=== PATIENT | female | born 1980 | race African-American/Black ===

== ENCOUNTER 2017-05-25 17:51 | Emergency (ER) | payer SELFPAY ==
--- NOTE | 2017-05-25 18:12 | PDOC ---
Rapid Medical Evaluation Chief Complaint: Pain, Acute Time Seen by Provider: 05/25/17 18:08 Medical Evaluation: Allergies Allergy/AdvReac Type Severity Reaction Status Date / Time No Known Allergies Allergy Verified 12/18/15 09:48 05/25/17 18:09 The patient presents with a chief complaint of: [Right sided facial pain and pressure, nasal congestion. High blood pressure not taking meds. No chest pain or sob. ] I have performed a brief in-person evaluation of this patient. Pertinent physical exam findings: BP elevated, no sinus pressure or pain. No headache. I have ordered the following: [None] The patient will proceed to the ED for further evaluation. Discharge Disposition - Diagnosis Facial pain - Referrals - Patient Instructions - Post Discharge Activity
[2017-05-25 18:23] VITALS: BP 187/104; PULSE 72; TEMP 98.1; BMI 33.3
--- NOTE | 2017-05-25 18:39 | PDOC ---
History of Present Illness - General Chief Complaint: Pain, Acute Stated Complaint: PAIN Time Seen by Provider: 05/25/17 18:08 History Source: Patient Exam Limitations: No Limitations - History of Present Illness Initial Comments: 05/25/17 18:47 36 yr female with history of HTN not on meds presents with c/o right facial pressure and nasal congestion. no headache no dizzyness, no vomiting or chest pain no changes in vision. Past History - Past Medical History Allergies/Adverse Reactions: Allergies Allergy/AdvReac Type Severity Reaction Status Date / Time No Known Allergies Allergy Verified 05/25/17 18:09 Home Medications: Ambulatory Orders Amlodipine Besylate [Norvasc -] 5 mg PO DAILY #30 tablet 05/25/17 Fluticasone Prop 0.05% Nasal [Flonase -] 1 - 2 spray NS DAILY #1 spray.pump 09/06 COPD: No DVT: No Dementia: No HTN: Yes - Immunization History Immunization Up to Date: Yes - Suicide/Smoking/Psychosocial Hx Smoking History: Never smoked Have you smoked in the past 12 months: No Information on smoking cessation initiated: No Hx Alcohol Use: No Drug/Substance Use Hx: No Substance Use Type: None Review of Systems - Review of Systems Able to Perform ROS?: Yes Is the patient limited Icelandic proficient: No Constitutional: No: Symptoms Reported HEENTM: Yes: Symptoms Reported Respiratory: No: Symptoms reported Cardiac (ROS): No: Symptoms Reported, Chest Tightness *Physical Exam - Vital Signs Last Vital Signs Temp Pulse Resp BP Pulse Ox 98.1 F 72 17 187/104 98 05/25/17 18:09 05/25/17 18:09 05/25/17 18:09 05/25/17 18:09 05/25/17 18:09 - Physical Exam General Appearance: Yes: Nourished, Appropriately Dressed HEENT: positive: EOMI, OSIRIS, Normal ENT Inspection, TMs Normal, Pharynx Normal, Sinus Tenderness (right maxilary ), Other (nasal swelling bilateraly, right greater than left, mucous membranes moist ) Neck: positive: Supple. negative: Tender Respiratory/Chest: positive: Lungs Clear, Normal Breath Sounds. negative: Chest Tender, Rhonchi, Wheezing Cardiovascular: positive: Regular Rhythm, Regular Rate. negative: Murmur Musculoskeletal: positive: Normal Inspection Extremity: positive: Normal Capillary Refill, Normal Inspection, Normal Range of Motion Integumentary: positive: Normal Color, Dry, Warm Neurologic: positive: Fully Oriented, Alert, Normal Mood/Affect, Normal Response , Motor Strength 07/24 Medical Decision Making - Medical Decision Making 05/25/17 18:57 cc: nasal congestion, right sided facial pain no headache no dizzyness no chest pain no vision changes I discussed the case with in the ER and will place on Norvasc on 5mg daily and have pt follow up in 1-2 weeks with PMD I have given referrals for Primary care as well as ENTfor follow up *DC/Admit/Observation/Transfer Diagnosis at time of Disposition: Facial pain Hypertension Qualifiers: Hypertension type: essential hypertension Qualified Code(s): I10 - Essential ( primary) hypertension - Discharge Dispostion Disposition: HOME Condition at time of disposition: Good - Prescriptions Prescriptions: Amlodipine Besylate [Norvasc -] 5 mg PO DAILY #30 tablet Fluticasone Prop 0.05% Nasal [Flonase -] 1 - 2 spray NS DAILY #1 spray.pump - Referrals Referrals: [facility] [place] [facility] [place] [Provider Group] [facility] [Provider Group] [facility] [Provider Group] José Miguel Soares MD [Staff Physician] - - Patient Instructions Additional Instructions: use the nasal spray as directed take Norvasc 5mg daily at the same time for your blood pressure follow with one of the Internal Medicine Doctors below for follow up and primary care call tomorrow to check your insurance with them and make an appointment for within the next 2 weeks you can also follow with the ENT if any worsening symptoms of nasal congestion or sinus pain - Post Discharge Activity
[2017-05-25] MEDS ORDERED: amLODIPine BESYLATE 5 MG TABLET (FP) PO STA (18:45)
[2017-05-25] MEDS ORDERED: amLODIPine BESYLATE 5 MG TABLET (FP) ONE (18:52)
== END 2017-05-25 19:11 | disposition home or self-care (01) ==
LOC: JERFT 17:51
DX: G50.1 Atypical facial pain (principal); I10 Essential (primary) hypertension
CPT/HCPCS: 99281-25

== ENCOUNTER 2018-02-09 16:40 | Emergency (ER) | payer SELFPAY ==
--- NOTE | 2018-02-09 16:51 | PDOC ---
Rapid Medical Evaluation Time Seen by Provider: 02/09/18 16:46 Medical Evaluation: Allergies Allergy/AdvReac Type Severity Reaction Status Date / Time No Known Allergies Allergy Verified 05/25/17 18:09 02/09/18 16:46 I have performed a brief in-person evaluation of this patient. The patient presents with a chief complaint of: left foot pain x "a while" Pertinent physical exam findings: firm mass to medial aspect of distal 3rd phalanx of left foot. BP- 218/119- asymptomatic I have ordered the following: urine The patient will proceed to the ED for further evaluation. Discharge Disposition - Diagnosis Foot pain, left - Referrals - Patient Instructions - Post Discharge Activity
[2018-02-09 16:53] VITALS: TEMP 98.7; BMI 33.3
[2018-02-09 17:27] LABS: HCG,QUALITATIVE URINE Negative
[2018-02-09 17:28] LABS: URINE APPEARANCE CLEAR; URINE BILIRUBIN NEGATIVE (<2.0 mg/dL); URINE COLOR LTYELLOW; URINE GLUCOSE (UA) NEGATIVE (NEGATIVE); URINE KETONE NEGATIVE (NEGATIVE); URINE LEUK ESTERASE 1+ (NEGATIVE); URINE NITRITE NEGATIVE (NEGATIVE); URINE PROTEIN NEGATIVE (NEGATIVE); URINE UROBILINOGEN NEGATIVE mg/dL (0.2-1.0)
[2018-02-09 17:30] LABS: EPI CELLS RARE /HPF (FEW); URINE BACTERIA RARE /hpf (NONE SEEN); URINE MUCUS RARE
[2018-02-09] MEDS ORDERED: IBUPROFEN 400 MG TABLET (FP) PO ONE ×2 (18:10→18:56)
[2018-02-09 19:21] LABS: EOS % 3.3 % (0-4.5); HEMATOCRIT 38.8 % (32.4-45.2); HEMOGLOBIN 13.6 GM/dL (10.7-15.3); LYMPH % 31.8 % (8-40); MCH 29.3 pg (25.7-33.7); MCHC 35.2 g/dl (32.0-36.0); MEAN CELL VOLUME 83.2 fl (80-96); MEAN PLT VOLUME 8.4 fl (7.5-11.1); MONO % 5.9 % (3.8-10.2); PLATELET COUNT 285 K/MM3 (134-434); RBC 4.66 M/mm3 (3.60-5.2); RDW 13.2 % (11.6-15.6); WHITE BLOOD COUNT 8.3 K/mm3 (4.0-10.0)
--- NOTE | 2018-02-09 19:24 | PDOC ---
History of Present Illness - General Chief Complaint: Pain Stated Complaint: FOOT PAIN Time Seen by Provider: 02/09/18 16:46 History Source: Patient Exam Limitations: No Limitations - History of Present Illness Initial Comments: This is a 37 YOF with h/o HTN who p/w initial complaint of left 4th toe pain which has been ongoing since she started wearing narrow shoes and being on her feet frequently for work, 2-3 months ago, but worse today. She also has high blood pressure on arrival, has not been taking antihypertensive meds, cannot get refills, has no PCP. She notes mild lightheadedness but no other new symptoms. Struggles with mild migraines but this is no different lately. Denies new recent f/c/n/v/d/c, n/t/w focally, chest pain, SOB, confusion, new BROWNE, etc. Past History - Past Medical History Allergies/Adverse Reactions: Allergies Allergy/AdvReac Type Severity Reaction Status Date / Time No Known Allergies Allergy Verified 05/25/17 18:09 Home Medications: Ambulatory Orders Amlodipine Besylate [Norvasc -] 5 mg PO DAILY #30 tablet 02/09/18 COPD: No DVT: No Dementia: No HTN: Yes - Immunization History Immunization Up to Date: Yes - Suicide/Smoking/Psychosocial Hx Smoking History: Never smoked Have you smoked in the past 12 months: No Information on smoking cessation initiated: No Hx Alcohol Use: No Drug/Substance Use Hx: No Substance Use Type: None Review of Systems - Review of Systems Able to Perform ROS?: Yes Comments:: GEN: no fever, chills, malaise, generalized weakness, or weight change HEENT: no ear pain, sore throat, vision change, or eye pain CV: mild intermittent lightheadedness, no chest pain, palpitations, syncope, or edema RESP: no cough, wheezing, or SOB GI: no abdominal pain, nausea, vomiting, diarrhea, constipation, or white/black/ bloody stool : no dysuria, hematuria, incontinence, retention, bleeding, or discharge MSK: left 4th toe pain; no neck/back pain, muscle weakness/pain, or joint swelling/pain NEURO: no current headache, seizure, vertigo, numbness, tingling, or focal weakness PSYCH: no substance use, no behavior change SKIN: no jaundice, no rash ROS otherwise negative except as noted in HPI *Physical Exam - Vital Signs Last Vital Signs Temp Pulse Resp BP Pulse Ox 98.7 F 83 20 218/119 H 100 02/09/18 16:47 02/09/18 16:47 02/09/18 16:47 02/09/18 16:47 02/09/18 16:47 GENERAL: well-appearing adult female, A/Ox4, no distress, answers questions appropriately HEENT: PERRLA, EOMI, moist mucous membranes NECK/BACK: no midline ttp, no spinal stepoff or deformity, no hematoma, full ROM , neck supple CARDIOVASCULAR: regular rate/rhythm, normal S1S2, no MGR, strong peripheral pulses, capillary refill <2 seconds, extremities wwp, no edema LUNGS/RESPIRATORY: no respiratory distress, CTAB GI/ABDOMEN: symmetric tnce-of-ivda, normoactive BS, soft, no ttp, no midline pulsatile masses : no CVA tenderness EXTREMITIES: left 4th toe callus to distal medial aspect; minimal ttp, no induration/fluctuance, otherwise no muscle atrophy, no acute deformity, no edema SKIN: warm and dry, no pallor, no jaundice, no rash, no bruising, no skin breakdown, no cuts, no lesions NEUROLOGICAL: GCS 15, CN II-XII grossly intact, 5/5 strength proximally and distally, no facial droop Heart Score/ECG Review #1 Sinus rhythm, rate of 64, normal axis and intervals, isolated TWI in III, no pathologic ST-T changes ED Treatment Course - LABORATORY CBC & Chemistry Diagram: 02/09/18 19:10 02/09/18 19:10 - ADDITIONAL ORDERS Additional order review: Laboratory Results 02/09/18 17:10 Urine Color Ltyellow Urine Appearance Clear Urine pH 7.0 Ur Specific [place] 1.020 Urine Protein Negative Urine Glucose (UA) Negative Urine Ketones Negative Urine Blood Negative Urine Nitrite Negative Urine Bilirubin Negative Urine Urobilinogen Negative Ur Leukocyte Esterase 1+ H Urine WBC (Auto) 1 Urine RBC (Auto) 2 Ur Epithelial Cells Rare Urine Bacteria Rare Urine Mucus Rare Urine HCG, Qual Negative - Medications Given in the ED: ED Medications Discontinued Medications Generic Name Dose Route Start Last Admin Trade Name Freq PRN Reason Stop Dose Admin Ibuprofen 800 mg 02/09/18 18:10 02/09/18 19:04 Motrin - PO 02/09/18 18:11 800 mg ONCE ONE Administration Medical Decision Making - Medical Decision Making 37 YOF with h/o HTN previously treated but not now, P/W initial c/o foot pain, found hypertensive: Initial Vital Signs Temp Pulse Resp BP Pulse Ox 98.7 F 83 20 218/119 H 100 02/09/18 16:47 02/09/18 16:47 02/09/18 16:47 02/09/18 16:47 02/09/18 16:47 Biggest c/f HTNive emergency given the lightheadedness but this is very mild. No clinical e/o end organ damage to brain, heart, kidneys, etc. Ordered are labs, EKG. Laboratory Tests 02/09/18 02/09/18 02/09/18 17:10 19:10 19:10 WBC 8.3 RBC 4.66 Hgb 13.6 Hct 38.8 MCV 83.2 MCH 29.3 MCHC 35.2 RDW 13.2 Plt Count 285 MPV 8.4 Absolute Neuts (auto) 4.8 Neutrophils % 58.0 Lymphocytes % 31.8 Monocytes % 5.9 Eosinophils % 3.3 Basophils % 1.0 Nucleated RBC % 0 Sodium 139 Potassium 4.5 Chloride 106 Carbon Dioxide 24 Anion Gap 9 BUN 18 Creatinine 1.4 H Creat Clearance w eGFR 42.55 Random Glucose 78 Calcium 8.3 L Total Bilirubin 0.2 AST 25 ALT 21 Alkaline Phosphatase 108 Creatine Kinase 261 H Creatine Kinase Index 1.0 CK-MB (CK-2) 2.8 Troponin I < 0.02 Total Protein 7.4 Albumin 3.3 L Urine Color Ltyellow Urine Appearance Clear Urine pH 7.0 Ur Specific [place] 1.020 Urine Protein Negative Urine Glucose (UA) Negative Urine Ketones Negative Urine Blood Negative Urine Nitrite Negative Urine Bilirubin Negative Urine Urobilinogen Negative Ur Leukocyte Esterase 1+ H Urine WBC (Auto) 1 Urine RBC (Auto) 2 Ur Epithelial Cells Rare Urine Bacteria Rare Urine Mucus Rare Urine HCG, Qual Negative Patient has Cr 1.4, we do not know the baseline. Unlikely that this is an acute process as she is essentially without new symptoms. However we will give her a dose of Norvasc here in the ED, and sent a month's supply to her pharmacy. 02/09/18 21:10 Patient's repeat BP is 175/115, HR is 79, ordering Norvasc. She will get PCP clinic follow-up referral info. 02/09/18 22:10 Repeat BP is 146/80 now while resting comfortably, patient denies symptoms. Workup is not concerning for emergency-level pathology at this time. This patient is appropriate for discharge with close outpatient follow up. The patient is comfortable with this plan and will follow up with PCP clinic within a week. PCP Clinic referral given for [place]. #30 Norvasc 5 mg PO to take daily are sent to patient's pharmacy and she is counseled. They agree to return to the ED with any new/worsening symptoms. Specific return precautions are discussed. *DC/Admit/Observation/Transfer Diagnosis at time of Disposition: Foot pain, left, EMMIE (acute kidney injury) Hypertension Qualifiers: Hypertension type: unspecified Qualified Code(s): I10 - Essential (primary) hypertension - Discharge Dispostion Disposition: HOME Condition at time of disposition: Stable Decision to Admit order: No - Prescriptions Prescriptions: Amlodipine Besylate [Norvasc -] 5 mg PO DAILY #30 tablet - Referrals Referrals: [facility] [place] [facility] [place] [Provider Group] - Patient Instructions Additional Instructions: You were seen in the ER for high blood pressure. We did lab work and an EKG, and your kidney values (the Creatinine) were a bit high at 1.4, but there were no other abnormalities that were concerning. We gave you a dose of blood pressure medicine here in the ER, and sent an electronic prescription to your pharmacy for a prescription called Norvasc, which you should take once a day. Follow up with a primary care provider. We are giving you referral information for our primary care clinic across the street, so call their number SAMANTHA. It is very important that you get your blood pressure under control because uncontrolled blood pressure can cause chronic diseases of the kidney, heart, lungs, and brain. Come back to the ER for any new or worsening symptoms, especially vision changes, headache, dizziness, fainting, shortness of breath, chest pain, or other symptoms. - Post Discharge Activity Forms/Work/School Notes: Back to Work
--- NOTE | 2018-02-09 20:04 | PDOC ---
Attending Attestation - HPI HPI: 02/09/18 20:07 The patient is a 37 year old female, with a significant past medical history of migraines and HTN (noncompliant with medications), who presents to the emergency department with, left 4th toe pain after wearing narrow shoes. As per patient, her toe pain has been worsening over the past day, prompting her visit to the ER today. Upon her arrival, the patients blood pressure reading was elevated to the 200s systolic. Patient endorses that she is not compliant with her antihypertensives because she does not have a PCP. She notes an associated mild intermittent lightheadedness. She denies recent fevers or chills. She denies recent nausea, vomit, diarrhea or constipation. She denies recent dysuria, frequency, urgency or hematuria. She denies recent chest pain or shortness of breath. Allergies: NKDA Past surgical history: None reported. Social history: Nonsmoker. Denies EtOH use and recreational drug use. <Tio Kaur - Last Filed: 02/09/18 20:07> - Resident Resident Name: Jennifer Rivera - ED Attending Attestation I have performed the following: I have examined & evaluated the patient, The case was reviewed & discussed with the resident, I agree w/resident's findings & plan, Exceptions are as noted - Physicial Exam PE: 02/09/18 20:58 Agree with resident physical examination - Medical Decision Making 02/09/18 20:58 No acute complaints worrisome for end organ damage, will follow up labs for Cr and ekg dispo per clinical course 02/09/18 21:09 Cr 1.4, no prior results in our records. Will repeat vital signs after analgesia and reassess. If BP still high will gently titrate BP down below threshold. Will consider starting outpatient antihyptensive in ED. Will need close outpatient follow. 02/09/18 22:15 Blood pressure improved, close out patient follow up for appropriate chronic HTN control dc <Jeison Montero - Last Filed: 02/09/18 22:16> Attestations - Attestations 02/09/18 20:08 Documentation prepared by Tio Kaur, acting as medical coding specialist for Jeison Montero MD. <Tio Kaur - Last Filed: 02/09/18 20:07>
[2018-02-09 20:12] LABS: ALBUMIN 3.3 g/dl (3.4-5.0); ALK PHOS 108 U/L (45-117); ANION GAP 9 MMOL/L (8-16); BILIRUBIN,TOTAL 0.2 mg/dL (0.2-1); BLOOD UREA NITROGEN 18 mg/dL (7-18); CALCIUM 8.3 mg/dL (8.5-10.1); CHLORIDE 106 mmol/L (98-107); CO2 24 mmol/L (21-32); CREATININE 1.4 mg/dL (0.55-1.3); GLUCOSE,RANDOM 78 mg/dL (74-106); POTASSIUM 4.5 mmol/L (3.5-5.1); SGOT/AST 25 U/L (15-37); SGPT/ALT 21 U/L (13-61); SODIUM 139 mmol/L (136-145); TOT PROT 7.4 g/dl (6.4-8.2)
[2018-02-09] MEDS ORDERED: amLODIPine BESYLATE 5 MG TABLET (FP) PO ONE (21:18)
[2018-02-09] MEDS ORDERED: amLODIPine BESYLATE 5 MG TABLET (FP) ONE (21:23)
[2018-02-09 22:24] VITALS: BP 146/80; PULSE 79
--- NOTE | 2018-02-11 10:14 | EKG ---
Test Reason : Blood Pressure : / mmHG Vent. Rate : 064 BPM Atrial Rate : 064 BPM P-R Int : 164 ms QRS Dur : 078 ms QT Int : 400 ms P-R-T Axes : 060 022 012 degrees QTc Int : 412 ms NORMAL SINUS RHYTHM POSSIBLE LEFT ATRIAL ENLARGEMENT NONSPECIFIC T WAVE ABNORMALITY ABNORMAL ECG NO PREVIOUS ECGS AVAILABLE Confirmed by GIOVANI FUENTES MD ([id number]) on 02/11/2018 10:14:27 AM Referred By: Confirmed By:GIOVANI FUENTES MD
== END 2018-02-09 22:24 | disposition home or self-care (01) ==
LOC: JER 16:40
DX: I10 Essential (primary) hypertension (principal); N17.9 Acute kidney failure, unspecified; M25.572 Pain in left ankle and joints of left foot; Z91.14 Patient's other noncompliance with medication regimen
CPT/HCPCS: 36415; 80053; 81003; 81015; 82550; 82553; 84484; 84703; 85025; 93005; 93010; 99282-25

== ENCOUNTER 2018-09-09 19:59 | Emergency (ER) | payer SELFPAY ==
[2018-09-09 20:06] VITALS: BMI 33.3
--- NOTE | 2018-09-09 20:06 | PDOC ---
Rapid Medical Evaluation Time Seen by Provider: 09/09/18 20:02 Medical Evaluation: Allergies Allergy/AdvReac Type Severity Reaction Status Date / Time No Known Allergies Allergy Verified 05/25/17 18:09 09/09/18 20:02 I have performed a brief in-person evaluation of this patient. The patient presents with a chief complaint of: atraumatic R wrist pain x 2 weeks. H/o HTN and non-compliant w/ meds Pertinent physical exam findings:Sig elevated BP, R wrist without swelling or ttp I have ordered the following:nothing The patient will proceed to the ED for further evaluation. Discharge Disposition - Diagnosis Wrist pain Qualifiers: Laterality: right Qualified Code(s): M25.531 - Pain in right wrist - Referrals - Patient Instructions - Post Discharge Activity
[2018-09-09] MEDS ORDERED: amLODIPine BESYLATE 5 MG TABLET (FP) PO ONE ×2 (20:28→22:34)
--- NOTE | 2018-09-09 22:34 | PDOC ---
History of Present Illness - General History Source: Patient Exam Limitations: No Limitations <Ashley Gauthier - Last Filed: 09/10/18 00:39> <Gabriella Field - Last Filed: 09/10/18 00:51> - General Chief Complaint: Pain Stated Complaint: WRIST PAIN Time Seen by Provider: 09/09/18 20:02 Past History - Past Medical History COPD: No DVT: No Dementia: No HTN: Yes - Immunization History Immunization Up to Date: Yes - Suicide/Smoking/Psychosocial Hx Smoking History: Never smoked Have you smoked in the past 12 months: No Hx Alcohol Use: No Drug/Substance Use Hx: No Substance Use Type: None <DishaAshley - Last Filed: 09/10/18 00:39> <Gabriella Field - Last Filed: 09/10/18 00:51> - Past Medical History Allergies/Adverse Reactions: Allergies Allergy/AdvReac Type Severity Reaction Status Date / Time No Known Allergies Allergy Verified 09/09/18 20:06 Home Medications: Ambulatory Orders Amlodipine Besylate [Norvasc -] 5 mg PO DAILY #30 tablet 02/09/18 Amlodipine Besylate [Norvasc -] 10 mg PO DAILY #30 tablet 09/10/18 *Physical Exam - Vital Signs Last Vital Signs Temp Pulse Resp BP Pulse Ox 98.6 F 74 18 198/111 H 99 09/09/18 20:02 09/09/18 20:02 09/09/18 20:02 09/09/18 20:02 09/09/18 20:02 - Physical Exam General Appearance: No: Apparent Distress HEENT: positive: OSIRIS Respiratory/Chest: positive: Lungs Clear, Normal Breath Sounds. negative: Respiratory Distress Cardiovascular: positive: Regular Rhythm, Regular Rate, S1, S2. negative: Murmur Gastrointestinal/Abdominal: positive: Normal Bowel Sounds, Soft. negative: Tender, Distended, Guarding, Rebound Extremity: positive: Other (Slight pain on ulnar deviation of R wrist, no deformity or swelling of R wrist noted, 5/5 strength of RUE, sensation intact of RUE, no snuffbox tenderness, negative pio test) Integumentary: positive: Normal Color. negative: Swelling, Ecchymosis, Bruising Neurologic: positive: recreation officer II-XII NML intact, Fully Oriented, Alert, Normal Mood/ Affect, Motor Strength 5/5 <Ashley Gauthier - Last Filed: 09/10/18 00:39> - Vital Signs Last Vital Signs Temp Pulse Resp BP Pulse Ox 98.6 F 70 18 186/123 H 99 09/09/18 20:02 09/09/18 22:34 09/09/18 20:02 09/09/18 22:34 09/09/18 20:02 <Gabriella Field - Last Filed: 09/10/18 00:51> ED Treatment Course - Medications Given in the ED: ED Medications Discontinued Medications Generic Name Dose Route Start Last Admin Trade Name Freq PRN Reason Stop Dose Admin Amlodipine Besylate 5 mg 09/09/18 20:28 09/09/18 22:03 Norvasc - PO 09/09/18 20:29 5 mg ONCE ONE Administration <Ashley Gauthier - Last Filed: 09/10/18 00:39> - Medications Given in the ED: ED Medications Discontinued Medications Generic Name Dose Route Start Last Admin Trade Name Freq PRN Reason Stop Dose Admin Amlodipine Besylate 5 mg 09/09/18 20:28 09/09/18 22:03 Norvasc - PO 09/09/18 20:29 5 mg ONCE ONE Administration <Gabriella Field - Last Filed: 09/10/18 00:51> Medical Decision Making - Medical Decision Making 37 y/o F hx of HTN (noncompliant with meds) presents with R wrist pain x 2 weeks. 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 Denies trauma, numbness/tingling/ weakness of extremities. Denies sob, cp, abd pain, n/v, visual/gait changes, weakness of extremities R wrist pain - not concerning for fracture based on exam Possibly wrist tendonitis R wrist placed in minor-wrap which helped with pain Elevated BP - patient has not seen PCP in "long time"; was seen here last January and started on Norvasc; was told to f/u in primary care clinic but never followed up Currently asymptomatic, not concerning for HTN emergency Will give Norvasc 5 mg and recheck 09/09/18 22:29 BP elevated despite Norvasc 10 mg given Patient refused pain meds D/W Dr. Field - no further intervention for now as patient asymptomatic Will send rx for Norvasc and provide primary care clinic number for follow-up 09/10/18 00:28 <Ashley Gauthier - Last Filed: 09/10/18 00:39> - Medical Decision Making The patient was seen and evaluated in conjunction with midlevel provider under my direct supervision, ancillary studies were reviewed. I agree with the plan as outlined JAHAIRA Gauthier. HPI, workup/dispo as outlined. VS reviewed, + hypertensive otherwise asymptomatic, rt wrist pain noted, offered analgesia but refused meds no trauma or likelihood of fx. poorly compliant with essential HTN, not on meds, previously ordered for norvasc will give dose here recheck BP, followup outpatient referrals, as she had not followed up previously with a PMD for elevated pressures. rx'd norvasc course, similar to prior regimen. most likely autoregulated with her poor control of BP. no cp sob, dizziness, syncope, neuro changes. remains elevated 190s/120s - however asymptomatic, no indication for treatment in the ED 09/09/18 23:01 09/10/18 00:50 <Gabriella Field - Last Filed: 09/10/18 00:51> *DC/Admit/Observation/Transfer - Discharge Dispostion Decision to Admit order: No <Ashley Gauthier - Last Filed: 09/10/18 00:39> <Gabriella Field - Last Filed: 09/10/18 00:51> Diagnosis at time of Disposition: Wrist pain Qualifiers: Laterality: right Qualified Code(s): M25.531 - Pain in right wrist Hypertension Qualifiers: Hypertension type: essential hypertension Qualified Code(s): I10 - Essential ( primary) hypertension - Discharge Dispostion Disposition: HOME Condition at time of disposition: Stable - Prescriptions Prescriptions: Amlodipine Besylate [Norvasc -] 10 mg PO DAILY #30 tablet - Referrals Referrals: Ludwig Raines MD [Staff Physician] - 2 Days Seth Munson DO [Staff Physician] - - Patient Instructions Printed Discharge Instructions: Essential Hypertension, DI for Wrist Sprain Additional Instructions: Thank you for choosing [facility]. It was a pleasure taking care of you. You may have tendonitis along wrist. Use minor-wrap as needed for comfort. Take Tylenol as needed for pain If symptoms continue to persist, consider follow-up with orthopedic doctor Your blood pressure was very elevated here. Please realize that it is very important that you take your medication You were referred to medicine clinic for further evaluation Return to the Emergency Department if your symptoms worsen or persist, you have shortness of breath, chest pain, severe abdominal pain, vomiting, dizziness, weakness of extremities (arms and/or legs), changes in vision or walking or other concerning symptoms.
[2018-09-09] MEDS ORDERED: ACETAMINOPHEN 325 MG TABLET (FP) PO ONE (23:01)
[2018-09-09] MEDS ORDERED: ACETAMINOPHEN 325 MG TABLET (FP) ONE (23:41)
[2018-09-10 00:10] VITALS: BP 192/116; PULSE 66; TEMP 98.2
== END 2018-09-10 00:59 | disposition home or self-care (01) ==
LOC: JER 19:59
DX: M25.531 Pain in right wrist (principal); I10 Essential (primary) hypertension; Z91.14 Patient's other noncompliance with medication regimen
CPT/HCPCS: 99281-25